=== PATIENT | male | born 1940 ===

== ENCOUNTER 2022-05-14 13:54 | Outpatient (CLI) | payer MEDICARE ==
[~2022-05-14 13:54] MED LIST: Iopamidol 370 76% 100 ML VIAL ONE
== END 2022-05-14 13:55 | disposition home or self-care (01) ==
LOC: CSHCT 13:54
PROVIDERS: ATTEND Urology
DX: D44.12 Neoplasm of uncertain behavior of left adrenal gland (principal); D35.02 Benign neoplasm of left adrenal gland; K57.30 Diverticulosis of large intestine without perforation or abscess without bleeding; I70.90 Unspecified atherosclerosis
CPT/HCPCS: 74170; 82565; Q9967